=== PATIENT | female | born 1930 | race Caucasian/White ===

== ENCOUNTER 2017-09-07 12:49 | Outpatient (CLI) | payer OTHER ==
[~2017-09-07 12:49] MED LIST: ATENOLOL50 MG; AVAPRO150 MG; GRALISE300 MG; SYNTHROID75 MCG
== END 2017-09-07 13:05 | disposition home or self-care (01) ==
LOC: NUCLEAR 12:49
DX: M81.0 Age-related osteoporosis without current pathological fracture (principal)